=== PATIENT | male | born 1940 | race Caucasian/White ===

== ENCOUNTER 2016-12-31 18:41 | Emergency (ER) | payer MEDICARE, OTHER ==
[~2016-12-31] VITALS: Ht 193 cm; Wt 105.0 kg
[~2016-12-31 18:41] MED LIST: AMLO5TAB96 PO; FENO1TAB76 PO; IBUP-232 PO; SIMV20 PO
[2016-12-31 18:47] VITALS: BP 160/74; PULSE 88; RESP 16; TEMP 98.2; O2SAT 95
[2016-12-31] MEDS ORDERED: AMLO10 PO (19:02)
[2016-12-31] MEDS ORDERED: SIMV5TAB3 PO (19:02)
[2016-12-31] MEDS ORDERED: PENI500T PO (19:20)
--- NOTE | 2016-12-31 19:20 | PD ---
HPI Chief Complaint: Oral / Dental Pain or Problem Time Seen by Provider: 19:10 Travel History International Travel<30 days: No Contact w/Intl Traveler<30days: No Traveled to known affect area: No History of Present Illness HPI 75-year-old male presents to the emergency room for evaluation of possible dental abscess for the past 2 days. Patient states he has recurring abscesses in the same location because his teeth are broken/rotten. He reports moderate to severe pain. Patient has been taking ibuprofen which takes the edge off but it always comes back. He does not have a dentist. Denies fever, chills, nausea , and vomiting. Denies any drainage. PFSH Past Medical History High Cholesterol: Yes (HIGH TRIGLYCERIDES) Diminished Hearing: No Hypertension: Yes Immunizations Current: No Triglycerides - High: Yes Past Surgical History Prostatectomy: Yes Tonsillectomy: Yes Social History Alcohol Use: No Tobacco Use: No Substance Use: No Allergies-Medications (Allergen,Severity, Reaction): Coded Allergies: No Known Allergies (Verified , 12/31/16) Reported Meds & Prescriptions Reported Meds & Active Scripts Active Reported Simvastatin 5 Mg Tab 5 Mg PO DAILY Norvasc (Amlodipine Besylate) 10 Mg Tab 10 Mg PO DAILY Review of Systems Except as stated in HPI: all other systems reviewed are Neg Physical Exam Narrative GENERAL: Well-nourished, well-developed male in no acute distress. Afebrile. Ambulatory. SKIN: Focused skin assessment warm/dry. HEAD: Normocephalic. EYES: No scleral icterus. No injection or drainage. DENTAL: Severe decay throughout. No loose or chipped teeth. No malocclusion. Tenderness to palpation above tooth #8. There is mild erythema surrounding the area but no drainage. No obvious abscess to drain. NECK: Supple, trachea midline. No JVD or lymphadenopathy. CARDIOVASCULAR: Regular rate and rhythm without murmurs, gallops, or rubs. RESPIRATORY: Breath sounds equal bilaterally. No accessory muscle use. Data Data Last Documented VS Vital Signs Date Time Temp Pulse Resp B/P Pulse Ox O2 Delivery O2 Flow Rate FiO2 12/31/16 18:47 98.2 88 16 160/74 95 MDM Medical Decision Making Medical Screen Exam Complete: Yes Emergency Medical Condition: Yes Medical Record Reviewed: Yes Differential Diagnosis Abscess, dentalgia, gingivitis Narrative Course 76-year-old male presents to the emergency room for evaluation of dental pain for the past 2 days. Patient reports recurring abscesses in the same location. Physical exam reveals severe decay throughout and tenderness to palpation over tooth #8 with mild erythema. No obvious abscess or drainage. No systemic signs of infection. Patient is afebrile and well-appearing in the emergency room. He will be discharged with prescription for penicillin. Told to follow up with the primary care physician or return for worsening symptoms. He understands and agrees to plan. Diagnosis Primary Impression: Dental abscess Referrals: Dentist Patient Instructions: Dental Abscess (ED), General Instructions Additional Instructions: Rest and drink plenty of fluids. Penicillin as directed, until gone. Follow-up with a dentist. Return to the emergency room for worsening symptoms. Med/Other Pt SpecificInfo: Prescription(s) given Disposition: 01 DISCHARGE HOME Condition: Stable Monica Acuna Dec 31, 2016 19:20
[2016-12-31] MEDS ORDERED: PENICILLIN V POTASSIUM 500 MG TAB PO ONE (19:30)
== END 2016-12-31 19:46 | disposition home or self-care (01) ==
LOC: PHEFT 18:41
DX: K04.7 Periapical abscess without sinus (principal); I10 Essential (primary) hypertension; E78.1 Pure hyperglyceridemia; E78.00 Pure hypercholesterolemia, unspecified
CPT/HCPCS: 99283

== ENCOUNTER 2017-10-26 07:38 | Emergency (ER) | payer MEDICARE, OTHER ==
[~2017-10-26] VITALS: Ht 193 cm; Wt 105.0 kg
[~2017-10-26 07:38] MED LIST changes: +AMLO10 PO; -AMLO5TAB96 PO; -FENO1TAB76 PO; -IBUP-232 PO; +PENI500T PO; -SIMV20 PO; +SIMV5TAB3 PO
[2017-10-26 07:40] VITALS: BP 164/115; PULSE 79; RESP 16; TEMP 97.4; O2SAT 97
--- NOTE | 2017-10-26 08:28 | PD ---
HPI Chief Complaint: Pain: Acute or Chronic Time Seen by Provider: 08:05 Travel History International Travel<30 days: No Contact w/Intl Traveler<30days: No Traveled to known affect area: No History of Present Illness HPI This 77-year-old male complaining of pain in his left leg. He says that about 2 days ago he was walking and had a sudden sharp pain in the back of his leg was then hard to walk. He has been putting ice on it and he is now able to bear weight on it but he has a lot of pain when he tries to flex at the knee. He is currently on Eliquis for atrial fibrillation. He is generally quite active. He has pulled hamstrings in the past and he thinks this might be a hamstring injury. PFSH Past Medical History Hx Anticoagulant Therapy: Yes (ELIQUIS) Cardiovascular Problems: Yes (HTN, A.FIB) High Cholesterol: Yes (HIGH TRIGLYCERIDES) Diabetes: Yes (PRE) Patient Takes Glucophage: No Diminished Hearing: No Hypertension: Yes Immunizations Current: No Triglycerides - High: Yes Past Surgical History Prostatectomy: Yes Tonsillectomy: Yes Social History Alcohol Use: No Tobacco Use: No Substance Use: No Allergies-Medications (Allergen,Severity, Reaction): Coded Allergies: No Known Allergies (Verified Adverse Reaction, Unknown, 10/26/17) Reported Meds & Prescriptions Reported Meds & Active Scripts Active Penicillin V Potassium 500 Mg Tab 500 Mg PO Q6H 7 Days Reported Simvastatin 5 Mg Tab 5 Mg PO DAILY Norvasc (Amlodipine Besylate) 10 Mg Tab 10 Mg PO DAILY Review of Systems General / Constitutional: No: Fever, Chills Eyes: No: Diploplia Cardiovascular: No: Chest Pain or Discomfort Respiratory: No: Cough, Shortness of Breath Gastrointestinal: No: Nausea, Vomiting Genitourinary: No: Urgency Musculoskeletal: Positive: Myalgias, Pain Skin: No Rash Neurologic: No: Weakness Endocrine: No: Heat Intolerance, Cold Intolerance Hematologic/Lymphatic: No: Easy Bruising Physical Exam Narrative GENERAL: Well-developed male SKIN: Focused skin assessment warm/dry. HEAD: Atraumatic. Normocephalic. EYES: Pupils equal and round. No scleral icterus. No injection or drainage. ENT: No nasal bleeding or discharge. Mucous membranes pink and moist. NECK: Trachea midline. No JVD. MUSCULOSKELETAL: No obvious deformities. No clubbing. No cyanosis. No edema. Examining the left leg there is tenderness in the posterior thigh above the knee. I do not feel any swelling. There is pain with attempted flexion of the knee. There is no obvious effusion. NEUROLOGICAL: Awake and alert. No obvious cranial nerve deficits. Motor grossly within normal limits. Normal speech. PSYCHIATRIC: Appropriate mood and affect; insight and judgment normal. Data Data Last Documented VS Vital Signs Date Time Temp Pulse Resp B/P (MAP) Pulse Ox O2 Delivery O2 Flow Rate FiO2 10/26/17 07:40 97.4 79 16 164/115 (131) 97 Orders Orders Femur (Ap & Lat/2vws) (10/26/17 08:25) MDM Medical Decision Making Medical Screen Exam Complete: Yes Emergency Medical Condition: Yes Medical Record Reviewed: Yes Differential Diagnosis Differential includes muscular strain, DVT, avulsion Narrative Course X-ray of the femur was done and there is no evidence of any fracture or ligamentous injury. Presentation is not consistent with DVT. He will be released with recommendations to rest and follow-up with his own medical doctor Diagnosis Primary Impression: Muscle strain of left thigh Disposition: 01 DISCHARGE HOME Condition: Stable Reginaldo Shanks MD Oct 26, 2017 08:28
--- NOTE | 2017-10-26 09:24 | RADRPT ---
EXAM DATE/TIME: 10/26/2017 08:35 [facility] COMPARISON: No previous studies available for comparison. INDICATIONS : Left femur/knee pain after possibly "pulling hamstring." Pain is primarily in left posterior knee & i s painful to bend or bear weight. MEDICAL HISTORY : Hypertension. Hypercholesterolemia. A-fib. SURGICAL HISTORY : Tonsillectomy. Prostatectomy. ENCOUNTER: Initial ACUITY: 2 days PAIN SCORE: 8/10 LOCATION: Left posterior knee FINDINGS: Two view examination of the left femur demonstrates no evidence of fracture or dislocation. Bony min eralization is normal. The soft tissue structures are intact. CONCLUSION: The osseous structures are intact. Frankie Saavedra MD on October 26, 2017 at 9:22 Board Certified Radiologist. This report was verified electronically.
== END 2017-10-26 10:07 | disposition home or self-care (01) ==
LOC: PHED 07:38
DX: S76.912A Strain of unspecified muscles, fascia and tendons at thigh level, left thigh, initial encounter (principal); I10 Essential (primary) hypertension; I48.91 Unspecified atrial fibrillation; E78.1 Pure hyperglyceridemia; R73.03 Prediabetes; Z79.01 Long term (current) use of anticoagulants; Z79.899 Other long term (current) drug therapy; Y93.01 Activity, walking, marching and hiking
CPT/HCPCS: 73552; 99283